=== PATIENT | female | born 1970 | race Caucasian/White ===

== ENCOUNTER → 2020-09-25 | Outpatient (CLI) | payer SELFPAY ==
[~2020-09-25] MED LIST: PREDNISONE20 MG PO; VALIUM 2MG T2 MG/TAB PO
[2020-09-25 17:34] LABS: ANION GAP 7 mmol/L (7-16); BLOOD UREA NITROGEN 10 mg/dL (7-17); CALCIUM 8.6 mg/dL (8.4-10.2); CARBON DIOXIDE 21 mmol/L (22-30); CHLORIDE 110 mmol/L (98-107); CREATININE, serum 0.87 (0.52-1.25); GLUCOSE 88 mg/dL (74-106); POTASSIUM 4.5 mmol/L (3.4-5.0); SODIUM 137 mmol/L (137-145)
[2020-09-25 17:35] LABS: C-REACTIVE PROTEIN < 0.5 mg/dL (0.0-0.9)
[2020-09-25 18:01] LABS: THYROID STIMULATING HORMONE 0.716 uIU/mL (0.465-4.680)
== END ==
LOC: COL.LAB 16:38
DX: K21.9 Gastro-esophageal reflux disease without esophagitis (principal); M19.90 Unspecified osteoarthritis, unspecified site

== ENCOUNTER 2020-10-26 16:45 | Emergency (ER) | payer SELFPAY ==
[~2020-10-26] VITALS: Ht 160 cm; Wt 81.8 kg
[2020-10-26] MEDS ORDERED: VALIUM 2MG T2 MG/TAB PO (17:09)
[2020-10-26] MEDS ORDERED: PREDNISONE20 MG PO (17:09)
[2020-10-26 18:00] VITALS: BP 134/87; PULSE 76; TEMP 98.1
== END 2020-10-26 18:17 | disposition home or self-care (01) ==
LOC: COL.ER 16:45
DX: M54.42 Lumbago with sciatica, left side (principal); Z88.2 Allergy status to sulfonamides; Z88.6 Allergy status to analgesic agent
CPT/HCPCS: J1100; J3360